=== PATIENT | male | born 1975 | race Caucasian/White ===

== ENCOUNTER 2016-07-04 06:23 | Day surgery (SDC) | payer OTHER ==
[2016-06-30 09:33] VITALS: BMI 25.1
--- NOTE | 2016-07-04 06:49 | CP.SDSHP ---
Same Day Surgery H & P - History Proposed Procedure: 1st MPJ arthrodesis with internal fixation Pre-Op Diagnosis: Right foot painful hallux rigidus - Previous Medical/Surgical History Cardiac: Hypertension Previous Surgical History: lumbar discectomy, knee arthroscopy - Allergies Allergies: Allergies No Known Allergies Allergy (Verified 10/01/14 23:01) - Physical Exam Vital Signs: Vital Signs 07/04/16 07/04/16 06:41 06:47 Temperature 97.9 F Pulse Rate 75 75 Respiratory 18 Rate Blood Pressure 134/90 O2 Sat by Pulse 98 Oximetry Mental Status: Alert & Oriented x3 Neuro: WNL Heart: WNL Lungs: WNL GI: WNL - {Optional Preform as Required} Integument: WNL Ortho: Other (painful 1st MPJ ROM, dorsal exostectomy noted to the right 1st MPJ ) - Impression Pt. Evaluated Today:Candidate for Anesthesia & Procedure: Yes - Date & Time Date: 07/04/16 Time: 07:03 Short Stay Discharge - Short Stay Discharge Admitting Diagnosis/Reason for Visit: M20.21 Disposition: HOME/ ROUTINE Referrals: Kelvin Cobos MD [Primary Care Provider] - Instructions: Ketorolac (By mouth), Cephalexin (By mouth), Hydrocodone/ Acetaminophen (By mouth) Additional Instructions (Diet, Activity): -Patient in good condition for discharge home. Pt to resume medications per medical reconciliation. Resume regular diet. Please keep dressing clean, dry, & intact to surgical site, use plastic bag over bandage for showering, using crutches at all times when ambulating, call clinic if you see signs of infection (redness, swelling, malodor), please make an appointment to see Dr. Go in clinic within 1 week for post-op check. You will be given prescriptions for post-operative medication on the day of surgery, after your surgery is complete. It is your responsibility as the patient to bring us any forms or documents you need filled out and/or signed. If you need to speak to a nurse in our clinic please call [phone] and someone will answer the phone Thursday from 9AM 5PM. Please leave a message at all other times. If you need to fax our clinic a document, our fax number is: [phone]. For all after-hour concerns: The on-call pager number is [phone]. The pager is held by a podiatry resident 20/10. You can use this to contact the resident physicians if your have any serious concerns either before or after your surgery. Examples of serious after-hour concerns are foul smelling odor with purulent drainage, completely saturated with blood dressings, tight cast that you cannot fit two fingers into, and individual ascending red streaks up the leg. Please keep in mind that prescriptions cannot be signed nor called into the pharmacy by residents of the [facility]. As the patient, it is your job to schedule a post-operative appointment at our clinic. The appointment scheduling phone number is: [phone]. For more information about our program please go to: [email or web address] Note/Discharge Note with Instructions: - Patient evaluated bedside in recovery s/p surgical procedure. - After surgical procedure patient in NAD - (+) Void, (+) Appetite - Capillary refill time <3s and NVSI intact. - Patient denies complaints at this time - Post operative instructions and plan of care explained to patient at length. - Pt. acknowledges understanding. - Patient stable for DC per podiatric surgery
--- NOTE | 2016-07-04 06:49 | CP.PCM.PN ---
Subjective - Date & Time of Evaluation Date of Evaluation: 07/04/16 Time of Evaluation: 06:49 - Subjective Subjective: 41 year old male with PMHx of HTN presents to [facility] for pre-operative evaluation for right 1st MPJ surgery by Dr. Go. Patient has been having a lot of pain in his right 1st MPJ for 2 years and has exhausted conservative treatment and now opts for surgical intervention. NPO status confirmed. Patient is NAD and AAOx3, denies n/v/f/c/sob/cp. Objective - Vital Signs/Intake and Output Vital Signs (last 24 hours): Temp Pulse Resp BP Pulse Ox 97.9 F 75 18 134/90 98 07/04/16 06:47 07/04/16 06:47 07/04/16 06:47 07/04/16 06:47 07/04/16 06:47 - Constitutional Appears: Well, Non-toxic, No Acute Distress - Extremities Exam Additional comments: Vasc: DP and PT pulses palpable 2/4 b/l. Skin temperature warm to cool from proximal to distal b/l. CFT <3 seconds to all digits b/l. Neuro: Gross sensation intact b/l. Derm: Skin is well hydrated, no open lesions. Webspaces CDI 1-4 b/l. Nails WNL for thickness and lenght. Ortho: Pain on right 1st MPJ ROM. Dorsal exostecomy noted to the right 1st MPJ. - Neurological Exam Neurological Exam: Alert, Awake, Oriented x3 - Psychiatric Exam Psychiatric exam: Normal Affect, Normal Mood Assessment and Plan - Assessment and Plan (Free Text) Assessment: 41 year old male with painful right hallux rigidus Plan: Pt was seen and examined in [facility] Pt NPO status was confirmed All Pre-op testing and clearance was in the chart Pt has exhausted all conservative treatment at this time and is opting for surgical intervention Pt was explained procedure and post-operative course All pt's questions were answered to satisfaction No guarantees were made Pt understands all risks, benefits and complications of procedure Pt will follow-up with Dr. Go
[2016-07-04] MEDS ORDERED: Bupivacaine 0.5% 50 ML IJ ONE (07:03)
[2016-07-04] MEDS ORDERED: ceFAZolin 1 GM in Sodium Chloride 0.9% 100 ML IVPB ONE (07:03)
[2016-07-04] MEDS ORDERED: Lidocaine 1% Inj (20ml) IJ ONE (07:03)
[2016-07-04] MEDS ORDERED: Phenylephrine 10 mg/ml Inj ONE (07:13)
[2016-07-04] MEDS ORDERED: Propofol 10 mg/ml Inj (20 ML) ONE ×3 (07:13→09:06)
[2016-07-04] MEDS ORDERED: Midazolam 2 MG/2 ML VIAL ONE (07:13)
[2016-07-04] MEDS ORDERED: Succinylcholine 200 mg/10 ml Inj IV ONE (07:13)
[2016-07-04] MEDS ORDERED: Dexamethasone 4 mg/1 ml ONE (07:25)
[2016-07-04] MEDS ORDERED: Lactated Ringer's 1,000 ML IV ONE (08:00)
[2016-07-04] MEDS: Bupivacaine 0.5% Inj(30mL) ONE ×2 (08:07→09:30)
[2016-07-04] MEDS: Lidocaine 1% Inj (20ml) ONE ×2 (08:07→08:50)
[2016-07-04] MEDS ORDERED: Ketamine 50 mg/ml Inj (10 ml) ONE (08:28)
[2016-07-04] MEDS ORDERED: HYDROmorphone 0.5 mg/0.5 ml ISec IVP PRN (10:22)
--- NOTE | 2016-07-04 10:24 | PCM.SURG1 ---
Surgeon's Initial Post Op Note - Surgeon's Notes Surgeon: Dr. Go Laborer [employer]: Shiloh Valentine PGY-2 Type of Anesthesia: IV Sedation, Local Anesthesia Administered By: Dr. Townsend Pre-Operative Diagnosis: Right foot hallux rigidus Operative Findings: see dictation. M: synthes 1st MPJ arhtrodesis plate with 2.7 locking screws. 4.0 cannulated screw 28 mm short threads. 2-0, 3-0, 4-0 vicryl. 4-0 monocril Post-Operative Diagnosis: same Operation Performed: right foot 1st MTPJ arthrodesis Specimen/Specimens Removed: right foot bone and soft tissue Estimated Blood Loss: EBL {In ML}: 25 Blood Products Given: N/A Drains Used: No Drains Post-Op Condition: Good Date of Surgery/Procedure: 07/04/16 Time of Surgery/Procedure: 08:00
--- NOTE | 2016-07-04 11:53 | RAD ---
PROCEDURE: Right Foot Radiographs. HISTORY: s/p R 1st MTPJ arthrodesis COMPARISON: None. FINDINGS: BONES: Status post 1st MTP arthrodesis, and metallic plate and multiple screws are noted transfixing the 1st MTP joint. There is no acute fracture or bone destruction. JOINTS: There is severe loss of the 1st MTP joint space. The remaining joint spaces are preserved. SOFT TISSUES: There is moderate soft tissue swelling in the foot. OTHER FINDINGS: None. IMPRESSION: Status post 1st MTP arthrodesis, no immediate complications.
[2016-07-04 12:26] VITALS: RESP 18
[2016-07-04 14:06] VITALS: O2SAT 97
[2016-07-04 16:11] VITALS: BP 130/87; PULSE 80; TEMP 98.3
--- NOTE | 2016-07-06 07:50 | OP ---
PROCEDURE DATE: 07/04/2016 SURGEON: Dr. Dakotah Go REHAB SERVICES AIDE: Shiloh Valentine, PGY-2 PREOPERATIVE DIAGNOSIS: Right foot hallux rigidus. POSTOPERATIVE DIAGNOSIS: Right foot hallux rigidus. NAME OF PROCEDURE: Right foot first metatarsophalangeal joint arthrodesis. ANESTHESIA: IV sedation with local anesthesia. ANESTHESIOLOGIST: Dr. Townsend INDICATIONS: The patient is a 41-year-old male with the above-mentioned diagnosis. The patient has exhausted conservative treatment at this time and is now requesting surgical intervention. The patient signed the consent after careful explanation of risks, benefits, complications and alternatives for surgical procedure. No guarantees were given nor implied. Ancef 2 grams IV were given to the patient prior to the procedure. N.p.o. status was confirmed prior to taking the patient to the operating room. PREPARATION: The patient was brought into the operating room and placed on the operating room table in supine position. A well-padded pneumatic ankle tourniquet was placed to the patient's right ankle in a supramalleolar position. After induction of IV sedation, a total of 22 mL of a 1:1 mixture of 0.5% Marcaine and 1% lidocaine plain were injected in a local block fashion to the right foot. The foot was then prepped and draped in the usual sterile manner and the procedure began. PROCEDURE: First metatarsophalangeal joint arthrodesis, right foot: Attention was directed to the dorsal aspect of the first metatarsophalangeal joint of the right foot where an approximately 8 cm linear longitudinal incision was made medial and parallel to the tendon of the extensor hallucis longus and extending from the metatarsal shaft distally to the base of the proximal phalanx. The incision was deepened through the subcutaneous tissues using sharp and blunt dissection. Care was taken to identify and retract all vital neurovascular structures. All bleeders were cauterized and ligated as necessary. At this time, a linear periosteal and capsular incision was performed over the dorsal aspect of the first metatarsophalangeal joint, extending proximally to the shaft of the first metatarsal and distally to the base of the proximal phalanx. The periosteal and capsular structures were then carefully dissected free of their osseous attachments and reflected medially and laterally, thus exposing the head of the first metatarsal into the operative site. Next, utilizing a sagittal bone saw and osteotomes, the dorsal and medial prominences were resected and passed from the operative field in order to create a normal contour of bone at the first metatarsal head and the base of the proximal phalanx. The bone was passed from the operative field and sent for pathology. All rough edges were smoothed down with the bone rasp. At this time, the hallux was plantarflexed in order to expose the metatarsal head and this region was smoothed out as well. Next, the metatarsophalangeal joint was held in a corrected position. Using a sagittal bone saw, the cartilage of the metatarsal head and the base of the proximal phalanx were resected and the position was held while this was done. Next, the medium size 2.4/2.7 first MPJ plate from [employer] with 5 mm of dorsiflexion was selected from the first MPJ fusion set. The plate was positioned onto the bone overlying the first metatarsophalangeal joint. The plate was then held down to bone using 2 olive wires in the compression holes. Next, the 1.25 mm guidewire was used to drill a compression screw. The wire was drilled through the base of the proximal phalanx from dorsal medial to proximal lateral, exiting at the shaft of the first metatarsal laterally. Once the wire was in place the compression mechanism from the set was placed on the olive wires and tightened down in order to further compress the fusion site. Next, the cannulated drill was used, the bone was countersunk , and a 4.0 cannulated 28 mm short threaded screw was inserted over the guidewire with excellent compression of the fusion site noted. The K-wire was then removed. At this time, the locking screws were drilled into the first metatarsophalangeal joint plate, 2.7 locking screws were used, one 20 mm, one 16 mm and two 18 mm screws were inserted using standard AO principles and techniques to secure the plate down to the bone. Once the plate was secure and correction was noted to be maintained, the 2 olive wires were removed from the plate. Correction was checked at this time and was noted to be in proper alignment. The wound was copiously irrigated with normal sterile saline. Periosteal and capsular tissues were reapproximated and coapted using 2-0 and 3- 0 Vicryl. Subcuticular closure was done using 4-0 Vicryl and skin was closed using 4-0 Vicryl in running subcuticular fashion. An additional 10 mL of 0.5% Marcaine plain along with 1 mL of dexamethasone 4 mg/mL were injected at the end of the case. The foot was then dressed using Steri-Strips, saline soaked gauze, Jorge Luis and a below-knee cast, which was bivalved was applied. POSTOPERATIVE CONDITION: The patient tolerated the anesthesia and procedure well and was escorted to the recovery room with vital signs stable and neurovascular status intact to the right foot. This patient will follow up with Dr. Go in the podiatry clinic next week. The patient will remain nonweightbearing in the below-knee cast with crutches. Shiloh Valentine DPM Dakotah Go DPM cc: [id number] TT: 07/06/2016 07:50:08 en MTDD
== END 2016-07-04 16:40 | disposition home or self-care (01) ==
LOC: H.OPSURG 06:23
PROVIDERS: ATTEND Podiatrist
DX: M20.21 Hallux rigidus, right foot (principal); I10 Essential (primary) hypertension

== ENCOUNTER 2016-08-23 22:06 | Emergency (ER) | payer SELFPAY ==
[2016-08-23 22:07] VITALS: BMI 25.1
[2016-08-23 22:21] VITALS: BP 152/90; PULSE 79; RESP 17; TEMP 98.9; O2SAT 98
--- NOTE | 2016-08-23 22:39 | ED PDOC ---
HPI: General Adult Time Seen by Provider: 08/23/16 22:38 Chief Complaint (Nursing): Wound Check Chief Complaint (Provider): eval of leg cast Additional Complaint(s): 41-year-old male presents to emergency department for evaluation of cast on the right lower extremity. Patient was taking a shower went water got inside the cast. He is concerned that the inside of the cast is now wet. Patient states he was wearing a shoulder boots but water got inside anyway. He was told by records management coordinator that if that ever happened he should come to ED immediately. Patient denies any acute pain. Past Medical History Reviewed: Historical Data, Nursing Documentation, Vital Signs Vital Signs: Last Vital Signs Temp 98.9 F 08/23/16 22:16 Pulse 79 08/23/16 22:16 Resp 17 08/23/16 22:16 BP 152/90 H 08/23/16 22:16 Pulse Ox 98 08/23/16 23:10 - Medical History PMH: HTN - Surgical History Surgical History: Back Surgery Other surgeries: right foot surgery, right knee surgery - Family History Family History: States: No Known Family Hx - Living Arrangements Living Arrangements: With Family - Social History Current smoker - smoking cessation education provided: No Alcohol: None Drugs: Denies - Home Medications Home Medications: Ambulatory Orders Medication Instructions Recorded Atenolol [Tenormin] 25 mg PO HS 07/04/16 Cephalexin [cephalexin] 500 mg PO TID 07/04/16 Hydrocodone/Acetaminophen [[place] 1 tab PO .Q4-6 PRN 07/04/16 10-325 Tablet] Ketorolac Tromethamine [Toradol] 30 mg PO Q6 PRN 07/04/16 - Allergies Allergies/Adverse Reactions: Allergies Allergy/AdvReac Type Severity Reaction Status Date / Time No Known Allergies Allergy Verified 08/23/16 22:21 Review of Systems ROS Statement: Except As Marked, All Systems Reviewed And Found Negative Constitutional: Negative for: Fever Musculoskeletal: Positive for: Other (cast to right leg is wet) Physical Exam - Reviewed Nursing Documentation Reviewed: Yes Vital Signs Reviewed: Yes - Physical Exam Appears: Positive for: Well, Non-toxic, No Acute Distress Skin: Negative for: Rash Extremity: Positive for: Other (cast noted to right leg distal to knee, lining of cast is moist, normal cap refill, normal distal sensation) Neurologic/Psych: Positive for: Alert, Oriented, Gait (ambulatory with crutches) - ECG O2 Sat by Pulse Oximetry: 98 Pulse Ox Interpretation: Normal Medical Decision Making Medical Decision Makin41 year old here for cast eval Plan: Podiatry resident, Dr. Rangel at bedside for cast eval. He removed cast and ordered x-rays Disposition - Clinical Impression Clinical Impression: Foot pain, Cast discomfort - Patient ED Disposition Is Patient to be Admitted: Transfer of Care - Disposition Disposition: Transfer of Care Disposition Time: 23:55 Condition: STABLE Patient Signed Over To: Panda Anderson Handoff Comments: Case was signed out to BOB Anderson pending diagnostic testing results and final disposition
--- NOTE | 2016-08-23 23:56 | CP.PCM.CON ---
History of Present Illness - History of Present Illness History of Present Illness: Pt seen 7 week s s/p right 1md MTPJ fusion due to cast getting wet in shower. Pt was told to present for immediate cast change to avoid skin breakdown and potential wound formation. Pt has no pain to area and no pedal complaints. Past Patient History - Past Social History Alcohol: None Drugs: Denies - CARDIAC Hx Hypertension: Yes - PULMONARY Hx Respiratory Disorders: No - NEUROLOGICAL Hx Neurological Disorder: No - HEENT Hx HEENT Problems: No - HEMATOLOGICAL/ONCOLOGICAL Hx Blood Transfusions: No - PSYCHIATRIC Hx Emotional Abuse: No Hx Physical Abuse: No - SURGICAL HISTORY Other/Comment: STACIE KNEE ARTHOSCOPY;DISSECTOMY OF L5-S1 - ANESTHESIA Hx Anesthesia: Yes Hx Anesthesia Reactions: No Meds Allergies/Adverse Reactions: Allergies Allergy/AdvReac Type Severity Reaction Status Date / Time No Known Allergies Allergy Verified 08/23/16 22:21 Physical Exam - Constitutional Appears: Well, Non-toxic, No Acute Distress - Extremities Exam Additional comments: Right foot focused. Cast integrity compromised at heel due to heel window carved out. Underlying cast padding is soaked. Neuro-vascular status intact to level of digits. Dorso-medial surgical cicatrix in well coapted and intact, distal aspect has eraser sized abrasion, secondary to fiberglass irritation from inadequate webril coverage. No skin breakdown noted. No tendernes supon palpation along surgical site. Results - Vital Signs Recent Vital Signs: Last Vital Signs Temp 98.9 F 08/23/16 22:16 Pulse 79 08/23/16 22:16 Resp 17 08/23/16 22:16 BP 152/90 H 08/23/16 22:16 Pulse Ox 98 08/23/16 23:37 Assessment & Plan - Assessment and Plan (Free Text) Assessment: 41 year old male 7 weeks s/p 1st MTPJ fusion, here for cast change. Plan: Pt seen and evaluated. Discussed with attending, Dr. Go who endorsed the following plan. Cast removed and reapplied to right foot. Radiographs taken to evaluated osseous union at fusion site. No improvement in overall osseous bridging noted at fusion site, compared to previous radiographs. Surgical hardware in-place and intact. Pt to remain NWB using axillary crutches. Follow-up in podiatry clinic at regular schedule intervals.
--- NOTE | 2016-08-24 00:45 | ED PDOC ---
- ECG O2 Sat by Pulse Oximetry: 98 Medical Decision Making Medical Decision Making: pt signed out to me pending podiatry eval. leg resplinted. to f/u podiatry clinic. Disposition - Clinical Impression Clinical Impression: Foot pain, Cast discomfort - POA Present On Arrival: None - Disposition Referrals: Podiatry Clinic [Outside] Disposition: Routine/Home Disposition Time: 00:45 Condition: STABLE Instructions: Arthralgia (ED)
--- NOTE | 2016-08-24 14:23 | RAD ---
PROCEDURE: Right foot dated 08/23/2016. . Two views of the right foot performed. HISTORY: Assess fusion 1st metatarsal COMPARISON: Comparison made with prior study 08/06/2016 FINDINGS: BONES: There has been removal of surrounding fiberglass cast. Re- demonstrated is metallic fixation hardware attached to the superomedial margins of the distal 1st metatarsal and proximal phalanx effectively fusing of the 1st MTP joint space. . . Hardware appears intact without evidence of the loosening or infection. Slightly diminished surrounding soft tissue swelling. JOINTS: As above. SOFT TISSUES: As above OTHER FINDINGS: None. IMPRESSION: Status post fusion distal aspect 1st metatarsal and proximal phalanx. Hardware appears intact without evidence of failure. Slightly diminished surrounding soft tissue swelling.
== END 2016-08-23 23:25 | disposition home or self-care (01) ==
LOC: H.ER 22:06
DX: M79.89 Other specified soft tissue disorders (principal); I10 Essential (primary) hypertension; Z98.1 Arthrodesis status

== ENCOUNTER 2017-01-18 22:35 | Emergency (ER) | payer SELFPAY ==
[2017-01-18 22:35] VITALS: BMI 25.1
[2017-01-18] MEDS ORDERED: Sodium Chloride 0.9% 1,000 ML IV STA (22:59)
--- NOTE | 2017-01-18 23:39 | ED PDOC ---
HPI: Chest Pain Time Seen by Provider: 01/18/17 22:50 Chief Complaint (Nursing): Chest Pain Chief Complaint (Provider): Chest Pain & Headache History Per: Patient History/Exam Limitations: no limitations Onset/Duration Of Symptoms: Hrs (chest pain since morning, headache since afternoon) Current Symptoms Are (Timing): Still Present Additional Complaint(s): 41 year old male presents to ED with complaints of chest pain since this morning and has a past medical history of hypercholesterolemia and is pre- Hypertension. States that onset of chest pain occurred while at rest and was non -radiating. Notes that he later on developed a headache that worsened with time as the chest pain slowly resolved. (-) Shortness of breath, photophobia, numbness, tingling, or weakness. PCP: Kelvin Cobos Past Medical History Reviewed: Historical Data, Nursing Documentation, Vital Signs Vital Signs: Last Vital Signs Temp 97.8 F 01/19/17 00:40 Pulse 63 01/19/17 00:40 Resp 17 01/19/17 00:40 BP 140/91 H 01/19/17 00:40 Pulse Ox 100 01/19/17 00:40 - Medical History PMH: HTN, Hypercholesterolemia (USED TO TAKE LOVAZA BEFORE) Denies: No Chronic Diseases - Surgical History Surgical History: Back Surgery - Family History Family History: States: Unknown Family Hx - Living Arrangements Living Arrangements: With Family - Social History Current smoker - smoking cessation education provided: Yes (light) Ex-Smoker (has not smoked in the last 12 months): No Drugs: Denies - Home Medications Home Medications: Ambulatory Orders Medication Instructions Recorded Atenolol [Tenormin] 25 mg PO HS 07/04/16 Cephalexin [cephalexin] 500 mg PO TID 07/04/16 Hydrocodone/Acetaminophen [[place] 1 tab PO .Q4-6 PRN 07/04/16 10-325 Tablet] Ketorolac Tromethamine [Toradol] 30 mg PO Q6 PRN 07/04/16 Naproxen [Naprosyn] 500 mg PO Q8 #30 tablet 01/19/17 - Allergies Allergies/Adverse Reactions: Allergies Allergy/AdvReac Type Severity Reaction Status Date / Time No Known Allergies Allergy Verified 08/23/16 22:21 JOHANNA Risk Score for UA/NSTEMI - JOHANNA Risk Score Age > 64: NO JOHANNA Score: 0 Risk %: 5% Curb-65 Severity Score - CURB-65 Severity Score Confusion: No Respiratory Rate greater than/equal to 30: No Age >64: No Curb-65 Score: 0 Percentage 30-day mortality: 0.6% Wells Criteria for PE - Wells Criteria for Pulmonary Embolism Heart Rate >100: No Hemoptysis: No Total Score: 0 Review of Systems ROS Statement: Except As Marked, All Systems Reviewed And Found Negative Eyes: Negative for: Other ((-) photophobia) Cardiovascular: Positive for: Chest Pain (resolving) Respiratory: Negative for: Shortness of Breath Neurological: Positive for: Headache. Negative for: Weakness, Numbness ((-) tingling) Physical Exam - Reviewed Nursing Documentation Reviewed: Yes Vital Signs Reviewed: Yes - Physical Exam Appears: Positive for: Well, Non-toxic, No Acute Distress Head Exam: Positive for: ATRAUMATIC, NORMOCEPHALIC Skin: Positive for: Normal Color, Warm, Dry Eye Exam: Positive for: EOMI, Normal appearance, PERRL ENT: Positive for: Normal ENT Inspection Neck: Positive for: Normal, Painless ROM Cardiovascular/Chest: Positive for: Regular Rate, Rhythm. Negative for: Murmur Respiratory: Positive for: Normal Breath Sounds. Negative for: Respiratory Distress Gastrointestinal/Abdominal: Positive for: Normal Exam, Soft. Negative for: Tenderness Extremity: Positive for: Normal ROM. Negative for: Deformity Neurologic/Psych: Positive for: Alert, Oriented. Negative for: Motor/Sensory Deficits - Laboratory Results Result Diagrams: 01/18/17 23:47 01/18/17 23:47 - ECG O2 Sat by Pulse Oximetry: 99 (RA) Pulse Ox Interpretation: Normal Medical Decision Making Medical Decision Makin Initial impression: migraine headache Initial plan: * EKG * Labs * UDrug Screen * Trop I * PTT/PT * Chest x-ray * NS IV * Reglan 10mg IVP * Toradol 15mg IVP * Re-evaluation 1245: Pt. pain free at this time, BP normal. Told to f/u w/ Joan doctor on 1-2 days. REturn precautions given. Will d/c home. Scribe Attestation: Documented by Lauren Hess acting as a scribe for Blake Blandon MD. Scribe Attestation: All medical record entries made by the Scribe were at my direction and personally dictated by me. I have reviewed the chart and agree that the record accurately reflects my personal performance of the history, physical exam, medical decision making, and the department course for this patient. I have also personally directed, reviewed, and agree with the discharge instructions and disposition. Disposition - Clinical Impression Clinical Impression: Atypical chest pain, Headache - Disposition Referrals: [facility] [place] [Outside] Disposition: Routine/Home Disposition Time: 00:44 Condition: STABLE Prescriptions: Naproxen [Naprosyn] 500 mg PO Q8 #30 tablet Instructions: Acute Headache (ED), Hypertension (ED), Chest Pain (ED) Forms: [employer] Connect (Congolese)
[2017-01-18 23:50] LABS: BASO % 0.5 % (0.0-2.0); EOS # 0.1 K/uL (0.0-0.7); EOS % 1.3 % (0.0-4.0); HEMATOCRIT 43.9 % (35.0-51.0); LYMPH # 3.2 K/uL (1.0-4.3); LYMPH % 52.1 % (20.0-40.0); MEAN CORPUSCULAR HEMOGLOBIN 28.9 pg (27.0-31.0); MEAN CORPUSCULAR HGB CONC 33.6 g/dL (33.0-37.0); MEAN PLATELET VOLUME 7.9 fl (7.2-11.7); MONO # 0.4 K/uL (0.0-0.8); MONO % 6.7 % (0.0-10.0); NEUT # 2.4 K/uL (1.8-7.0); NEUT % 39.4 % (50.0-75.0); NRBC % 0.1 % (0.0-0.0); RED CELL DISTRIBUTION WIDTH 13.1 % (11.5-14.5); WHITE BLOOD COUNT 6.1 K/uL (4.8-10.8)
[2017-01-19 00:02] LABS: PARTIAL THROMBOPLASTIN TIME 30.3 Seconds (25.6-37.1)
[2017-01-19 00:03] LABS: BLOOD UREA NITROGEN 16 mg/dl (9-20); CALCIUM 9.7 mg/dL (8.4-10.2); CARBON DIOXIDE 28 mmol/L (22-30); CHLORIDE 103 mmol/L (98-107); GFR AFRICAN-AMERICAN > 60; GLUCOSE,RANDOM 105 mg/dL (75-110); POTASSIUM 3.9 MMOL/L (3.6-5.0); SODIUM 144 mmol/l (132-148)
[2017-01-19 00:41] VITALS: BP 140/91; PULSE 63; RESP 17; TEMP 97.8
[2017-01-19 00:44] VITALS: O2SAT 99
--- NOTE | 2017-01-19 08:46 | CARD ---
APPROVED REPORT EKG Measurement Heart [id number] <Conclusion> Normal sinus rhythm Minimal voltage criteria for LVH, may be normal variant Borderline ECG
--- NOTE | 2017-01-19 13:31 | RAD ---
HISTORY: cp COMPARISON: 06/30/2016 TECHNIQUE: Chest PA and lateral FINDINGS: LUNGS: No active pulmonary disease. PLEURA: No significant pleural effusion identified. No pneumothorax apparent. CARDIOVASCULAR: Normal. OSSEOUS STRUCTURES: No significant abnormalities. VISUALIZED UPPER ABDOMEN: Normal. OTHER FINDINGS: None. IMPRESSION: No active disease.
== END 2017-01-19 00:44 | disposition home or self-care (01) ==
LOC: H.ER 22:35
DX: R07.9 Chest pain, unspecified (principal); R51 Headache; F17.200 Nicotine dependence, unspecified, uncomplicated; I10 Essential (primary) hypertension; E78.00 Pure hypercholesterolemia, unspecified
CPT/HCPCS: 71020; 80048; 84484; 85025; 85610; 85730; 93005; 96374; 96375; 99284; J1885; J2765; J7040